=== PATIENT | female | born 1955 | race Caucasian/White ===

== ENCOUNTER → 2017-05-18 | Outpatient (CLI) | payer OTHER | LOC: FIMAGING 16:19 | PROVIDERS: ATTEND Physician Assistant | DX: S82.192A Other fracture of upper end of left tibia, initial encounter for closed fracture (principal); M25.462 Effusion, left knee; W19.XXXA Unspecified fall, initial encounter ==

== ENCOUNTER 2017-05-24 18:11 | Emergency (ER) | payer OTHER ==
[2017-05-24 18:19] VITALS: BP 113/73; PULSE 69; RESP 18; TEMP 97.7; O2SAT 93
--- NOTE | 2017-05-24 18:35 | EDPHY ---
H & P Stated Complaint: l leg surg today/known dvt as well??/fortino kam sent to ed Time Seen by Provider: 05/24/17 18:20 HPI/ROS: CHIEF COMPLAINT: Left calf DVT HISTORY OF PRESENT ILLNESS: The patient is a 61-year-old female who suffered tibial plateau fracture 2 weeks ago. She has been in a straight leg brace nonweightbearing with crutches. She developed some left calf pain about a week ago that her has been massaging for her. Today she had surgery with Dr. Caroline Kam to repair the plateau fracture. Just prior to surgery she mentioned left calf pain. They proceeded with surgery but afterwards obtain an ultrasound which revealed a posterior tibial DVT. The patient was told to come to the emergency department. Dr. Kam called ahead and states she is okay with a starting Xarelto but to wait till tomorrow. REVIEW OF SYSTEMS: Constitutional: denies: chills, fever, recent illness, recent injury EENTM: denies: blurred vision, double vision, nose congestion Respiratory: denies: cough, shortness of breath Cardiac: denies: chest pain, irregular heart rate, lightheadedness, palpitations Gastrointestinal/Abdominal: denies: abdominal pain, diarrhea, nausea, vomiting, blood streaked stools Genitourinary: denies: dysuria, frequency, hematuria, pain Musculoskeletal: See HPI Skin: denies: lesions, rash, jaundice, bruising Neurological: denies: headache, numbness, paresthesia, tingling, dizziness, weakness Hematologic/Lymphatic: denies: blood clots, easy bleeding, easy bruising Immunologic/allergic: denies: HIV/AIDS, transplant EXAM: GENERAL: Well-appearing, well-nourished and in no acute distress. HEAD: Atraumatic, normocephalic. EYES: Pupils equal round and reactive to light, extraocular movements intact, sclera anicteric, conjunctiva are normal. ENT: TMs normal, nares patent, oropharynx clear without exudates. Moist mucous membranes. NECK: Normal range of motion, supple without lymphadenopathy or JVD. LUNGS: Breath sounds clear to auscultation bilaterally and equal. No wheezes rales or rhonchi. HEART: Regular rate and rhythm without murmurs, rubs or gallops. ABDOMEN: Soft, nontender, normoactive bowel sounds. No guarding, no rebound. No masses appreciated. BACK: No CVA tenderness, no spinal tenderness, step-offs or deformities EXTREMITIES: Left calf pain, left knee pain. Swelling, brace in place, normal pulses distally. Normal coloration. No clubbing or cyanosis. NEUROLOGICAL: Cranial nerves II through XII grossly intact. Normal speech, normal gait. 5/5 strength, normal movement in all extremities, normal sensation PSYCH: Normal mood, normal affect. SKIN: Warm, dry, normal turgor, no visible rashes or lesions. Source: Patient Exam Limitations: No limitations - Personal History Current Tetanus/Diphtheria Vaccine: No - Medical/Surgical History Hx Asthma: No Hx Chronic Respiratory Disease: No Hx Diabetes: No Hx Cardiac Disease: No Hx Renal Disease: No Hx Cirrhosis: No Hx Alcoholism: No Hx HIV/AIDS: No Hx Splenectomy or Spleen Trauma: No Other PMH: L WRIST PAIN/l leg fx - Family History Significant Family History: No pertinent family hx - Social History Smoking Status: Never smoked Alcohol Use: Sober Drug Use: None Constitutional: Initial Vital Signs Temperature (C) 36.5 C 05/24/17 18:16 Heart Rate 69 05/24/17 18:16 Respiratory Rate 18 05/24/17 18:16 Blood Pressure 113/73 05/24/17 18:16 O2 Sat (%) 93 05/24/17 18:16 O2 Delivery Mode Room Air Allergies/Adverse Reactions: Sulfa (Sulfonamide Antibiotics) Allergy (Verified 05/24/17 18:12) Home Medications: Medication Instructions Recorded Hydrocodone/APAP 5/325 [[place] 1 - 2 tab PO Q4H PRN #14 tab 05/24/17 5/325 (RX)] Medical Decision Making - Diagnostics Imaging: Discussed imaging studies w/ pig breeder Radiologist ED Course/Re-evaluation: Patient has a calf DVT. She is immobilized. We will start her on anticoagulation. We are attempting to obtain a free trial pack to start. She has an appointment with Dr. Kam next week. She will follow up with her primary Dr. Pérez concerning the anticoagulation and repeat ultrasound. 6:50 p.m. Patient was given a free 30 day coupon as well as a coupon for 10 dollar co-pay. She will discuss with the pharmacist which is better. She is so requesting a prescription for pain medications because she was only given 5 after the initial injury. She has only taken half of a tablet thus far but her is concerned she will have significantly more pain now after the surgery. Differential Diagnosis: Partial list of the Differential diagnosis considered include but were not limited to; DVT, thrombophlebitis and although unlikely based on the history and physical exam, I also considered is hematoma, cellulitis, compartment syndrome. I discussed these differential diagnoses and the plan with the patient as well as the usual and expected course. The patient understands that the diagnosis is provisional and that in medicine we are not always correct and that further workup is often warranted. Usual and customary warnings were given. All of the patient's questions were answered. The patient was instructed to return to the emergency department should the symptoms at all worsen or return, otherwise to followup with the physician as we discussed. - Data Points Medications Given: Discontinued Medications Hydrocodone Bitart/Acetaminophen ([place] 5/325mg Prepack#6) 1 btl TAKEHOME EDNOW ONE Stop: 05/24/17 18:57 Last Admin: 05/24/17 19:09 Dose: 1 btl Departure - Departure Disposition: Home, Routine, Self-Care Clinical Impression: DVT (deep venous thrombosis) Qualifiers: DVT location: lower extremity Affected thrombotic vein of extremity: tibial Chronicity: acute Laterality: left Qualified Code(s): I82.442 - Acute embolism and thrombosis of left tibial vein Condition: Good Instructions: Hydrocodone/Acetaminophen (By mouth), Rivaroxaban (By mouth), Deep Vein Thrombosis (ED) Referrals: NONE *PRIMARY CARE P,. [Primary Care Provider] - As per Instructions Lavern Gomez MD [Medical Doctor] - As per Instructions Prescriptions: Hydrocodone/APAP 5/325 [[place] 5/325 (RX)] 1 - 2 tab PO Q4H PRN #14 tab PRN Reason: Pain, Moderate
[2017-05-24] MEDS ORDERED: HYDROCOD/APAP 5/325 PREPACK#6 BTL TAKEHOME ONE (18:56)
== END 2017-05-24 19:17 | disposition home or self-care (01) ==
DX: I82.442 Acute embolism and thrombosis of left tibial vein (principal)

== ENCOUNTER → 2017-05-24 | Outpatient (CLI) | payer OTHER | LOC: FIMAGING 16:35 | PROVIDERS: ATTEND Orthopaedic Surgery | DX: I82.402 Acute embolism and thrombosis of unspecified deep veins of left lower extremity (principal) ==

== ENCOUNTER → 2017-08-11 | Outpatient (CLI) | payer OTHER | LOC: FIMAGING 14:18 | PROVIDERS: ATTEND Nurse Practitioner | DX: M79.605 Pain in left leg (principal); M79.89 Other specified soft tissue disorders ==

== ENCOUNTER → 2017-09-19 | Outpatient (CLI) | payer OTHER | LOC: FIMAGING 10:49 | PROVIDERS: ATTEND Nurse Practitioner | DX: R91.8 Other nonspecific abnormal finding of lung field (principal) ==